=== PATIENT | female | born 2000 | race American Indian/Alaskan Native ===

== ENCOUNTER → 2023-05-28 08:39 | Outpatient (CLI) | payer OTHER, SELFPAY ==
--- NOTE | 2023-05-28 08:41 | DI.US.S_ITS ---
PROCEDURE: US OB <= 14 WEEKS FETUS INDICATIONS: Dating and viability OUTSIDE/PRIOR DATING DATA: Last menstrual period (LMP): March 03, 2023. LMP-based estimated date of delivery (JIE): December 08, 2023. First dating scan (date and location): May 28, 2023. Estimated date of delivery (JIE) from first dating scan: December 04, 2023. TECHNIQUE: Real-time scanning was performed of the fetus and maternal pelvic organs, with image documentation. COMPARISON: None. FINDINGS: Embryo: Single living intrauterine gestation with estimated sonographic gestational age of approximately 12 weeks and 6 days based off crown-rump length measurement of approximately 6.5 cm. heart rate measures 155 beats per minute. No perigestational hemorrhage. Maternal organs: Ovaries appear normal bilaterally.. IMPRESSION: Single living intrauterine gestation with estimated sonographic gestational age of approximately 12 weeks and 6 days with estimated dated delivery of approximately December 04, 2023 versus approximately December 08, 2023 by last menstrual period. Recommend routine second trimester anatomy screening survey. We strive to produce accurate, complete, and clear reports of imaging services. To assist us in improving patient care, this report was composed using standard report templates and voice recognition software. Therefore, it may contain abnormal punctuation, insertions and/or omissions. Occasional wrong-word or sound-alike substitutions may occur. Though we review the report and make efforts to correct it, we do recommend that the report be read carefully in proper context to recognize any text inaccuracies. Dictated by: Bobby Carpenter M.D. on 05/28/2023 at 11:13 Approved by: Bobby Carpenter M.D. on 05/28/2023 at 11:16
== END ==
PROVIDERS: Referring Provider Family Medicine; Visit Provider Family Medicine
DX: Z34.01 Encounter for supervision of normal first pregnancy, first trimester (principal); Z3A.12 12 weeks gestation of pregnancy
CPT/HCPCS: 76801

== ENCOUNTER → 2023-06-09 15:26 | Outpatient (CLI) | payer OTHER, SELFPAY ==
[2023-06-09 16:27] LABS: Add Manual Diff / Slide Review NO; Basophils Absolute Auto 0 /uL (0-100); Basophils Percent Auto 0.3 % (0-2); Eosinophils Absolute Auto 100 /uL (0-450); Eosinophils Percent Auto 0.8 % (2-4); Hematocrit 41.1 % (36-46); Hemoglobin 13.9 g/dL (12.0-16.0); Lymphocytes Absolute Auto 1400 /uL (1100-4500); Lymphocytes Percent Auto 15.3 % (25-40); Mean Corpuscular HGB Conc 33.8 % (30-36); Mean Corpuscular Hemoglobin 28.3 PG (26-34); Mean Corpuscular Volume 83.7 fL (80-100); Monocytes Absolute Auto 500 /uL (0-900); Monocytes Percent Auto 5.7 % (3-14); Neutrophils Absolute Auto 7400 /uL (1500-7000); Neutrophils Percent Auto 77.9 % (50-75); Platelet Count 317 X10^3/uL (150-400); Red Blood Cell Count 4.91 X10^6/uL (4.0-5.2); Red Cell Distribution Width 13.9 % (11.6-14.8); White Blood Cell Count 9.5 X10^3/uL (4.5-11.0)
[2023-06-09 16:38] LABS: Appearance Urine UA CLEAR; Bilirubin Urine UA NEGATIVE (NEGATIVE); Color Urine UA YELLOW; Glucose Urine UA NEGATIVE (Negative); Ketones Urine UA NEGATIVE (NEGATIVE); Leukocyte Esterase Urine UA NEGATIVE (NEGATIVE); Nitrite Urine UA NEGATIVE (Negative); Occult Blood Urine UA NEGATIVE (Negative); Protein Urine UA NEGATIVE (Negative); Specific Gravity Urine UA 1.015 (1.000-1.035)
[2023-06-10 05:51] LABS: RPR Screen Non Reactive (Non Reactive)
[2023-06-10 13:53] LABS: Varicella IgG Antibody 150 index (Immune >165)
[2023-06-11 15:53] LABS: Hepatitis B Surface Antigen NEGATIVE s/c (NEGATIVE); Rubella Antibody IgG 37.5 IU/mL (>15)
[2023-06-11 16:11] LABS: HIV 1 & 2 Ab/Ag 4th Gen Combo NEGATIVE (NEGATIVE); Hep C Virus Ab w/Reflex Quant NEGATIVE s/c (NEGATIVE)
== END ==
LOC: LAB 15:27
PROVIDERS: PCP Family Medicine; Referring Provider Family Medicine; Visit Provider Family Medicine
DX: Z34.00 Encounter for supervision of normal first pregnancy, unspecified trimester (principal)
CPT/HCPCS: 36415; 80055; 81003; 86787; 86803; 86850; 86900; 86901; 87086; 87389

== ENCOUNTER → 2023-06-19 16:55 | Outpatient (CLI) | payer OTHER, SELFPAY | PROVIDERS: PCP Family Medicine; Referring Provider Family Medicine; Visit Provider Family Medicine | DX: O99.342 Other mental disorders complicating pregnancy, second trimester (principal) | CPT/HCPCS: 36415 ==

== ENCOUNTER → 2023-07-17 14:20 | Outpatient (CLI) | payer OTHER, SELFPAY ==
--- NOTE | 2023-07-17 14:20 | DI.US.S_ITS ---
PROCEDURE: US OB >= 14 WEEKS FETUS INDICATIONS: 20 week anatomy scan OUTSIDE/PRIOR DATING DATA: Last menstrual period (LMP): 03/03/2023 LMP-based estimated date of delivery (JIE): 12/08/2023. First dating scan (date and location): 05/28/2023. Estimated date of delivery (JIE) from first dating scan: 12/04/2023 TECHNIQUE: Real-time scanning was performed of the fetus, with image documentation and biometric measurements. COMPARISON: [facility], OB <= 14 WEEKS FETUS, 05/28/2023, 9:02. FINDINGS: General: A single living intrauterine gestation is present. Presentation: Vertex. Placenta: Placental position is anterior , without previa. Amniotic fluid index: 15.5 cm, normal range is 5-24 cm. Single deepest vertical pocket is 4.5 cm. heart rate: 153 beats per minute. Maternal cervical canal: 3.5 cm long. Normal lower limit is 2.5 cm. biometrics: Biparietal diameter: 20 weeks 3 days Head circumference: 20 weeks 1 day Abdominal circumference: 20 weeks 4 days Femur length: 20 weeks 5 days Clinically estimated gestational age: 19 weeks 2 days Composite gestational age from present scan: 20 weeks 3 days Estimated weight and percentile: 359 g; 97th percentile Anatomic survey: Neuro: Ventricles are non-dilated at less than 10 mm. Cisterna magna is normal at 3-11 mm. Cerebellum is normal in size and morphology. Nuchal skin fold: Normal at less than 6 mm between 14-21 weeks gestational age. Face: Nose and lips, facial profile are normal. Spine: No evidence for spina bifida. Heart: 4-chambered heart is present, with normal ventricular outflow tracts. Diaphragm: Diaphragm is intact. Stomach: Left-sided stomach is present. Kidneys: No hydronephrosis. Normal is less than 5 mm in 2nd trimester, less than 7 mm in 3rd trimester. Cord: 3-vessel cord has orthotopic insertion. Bladder: Normal in size. Extremities: All 4 extremities identified. IMPRESSION: 1. Single living IUP redemonstrated and interval growth is greater than expected. Follow-up growth recommended. 2. Normal anatomic survey. We strive to produce accurate, complete, and clear reports of imaging services. To assist us in improving patient care, this report was composed using standard report templates and voice recognition software. Therefore, it may contain abnormal punctuation, insertions and/or omissions. Occasional wrong-word or sound-alike substitutions may occur. Though we review the report and make efforts to correct it, we do recommend that the report be read carefully in proper context to recognize any text inaccuracies. Dictated by: Amado HAM Interpreted: Zoe Rosario MD on 07/17/2023 at 15:44 Transcribed by: ANJUM on 07/17/2023 at 15:46 Approved by: Zoe Rosario M.D. on 07/19/2023 at 20:37
== END ==
PROVIDERS: PCP Family Medicine; Referring Provider Family Medicine; Visit Provider Family Medicine
DX: Z36.89 Encounter for other specified antenatal screening (principal); Z11.3 Encounter for screening for infections with a predominantly sexual mode of transmission; Z3A.20 20 weeks gestation of pregnancy
CPT/HCPCS: 76811; 87210; 87491; 87563; 87591

== ENCOUNTER → 2023-07-17 16:46 | Outpatient (CLI) | payer OTHER, SELFPAY ==
[2023-07-22 20:32] LABS: Chlamydia trachomatis Negative (Negative); Mycoplasma genitalium Negative (Negative); Neisseria gonorrhoeae Negative (Negative)
== END ==
PROVIDERS: PCP Family Medicine; Visit Provider Family Medicine
DX: Z11.3 Encounter for screening for infections with a predominantly sexual mode of transmission (principal)
CPT/HCPCS: 87210; 87491; 87563; 87591

== ENCOUNTER → 2023-09-14 09:51 | Outpatient (CLI) | payer OTHER, SELFPAY ==
[2023-09-14 14:34] LABS: Add Manual Diff / Slide Review NO; Basophils Absolute Auto 0 /uL (0-100); Basophils Percent Auto 0.3 % (0-2); Eosinophils Absolute Auto 100 /uL (0-450); Eosinophils Percent Auto 1.3 % (2-4); Hematocrit 37.8 % (36-46); Hemoglobin 12.6 g/dL (12.0-16.0); Lymphocytes Absolute Auto 1500 /uL (1100-4500); Lymphocytes Percent Auto 13.2 % (25-40); Mean Corpuscular HGB Conc 33.5 % (30-36); Mean Corpuscular Hemoglobin 29.3 PG (26-34); Mean Corpuscular Volume 87.4 fL (80-100); Monocytes Absolute Auto 800 /uL (0-900); Monocytes Percent Auto 6.9 % (3-14); Neutrophils Absolute Auto 8800 /uL (1500-7000); Neutrophils Percent Auto 78.3 % (50-75); Platelet Count 279 X10^3/uL (150-400); Red Blood Cell Count 4.32 X10^6/uL (4.0-5.2); Red Cell Distribution Width 13.7 % (11.6-14.8); White Blood Cell Count 11.3 X10^3/uL (4.5-11.0)
[2023-09-14 14:56] LABS: GTT (PREG) 1 Hour PP 50gm Dose 94 mg/dL (76-139)
== END ==
PROVIDERS: PCP Family Medicine; Referring Provider Family Medicine; Visit Provider Family Medicine
DX: O09.899 Supervision of other high risk pregnancies, unspecified trimester (principal); Z28.39 Other underimmunization status
CPT/HCPCS: 36415; 82950; 85025

== ENCOUNTER → 2023-11-04 14:23 | Outpatient (CLI) | payer OTHER, SELFPAY ==
--- NOTE | 2023-11-04 14:24 | DI.US.S_ITS ---
PROCEDURE: US OB >= 14 WEEKS FETUS INDICATIONS: EFW of 97% - measurement OUTSIDE/PRIOR DATING DATA: Last menstrual period (LMP): 03/03/2023. LMP-based estimated date of delivery (JIE): 12/08/2023. First dating scan (date and location): 05/28/2023. Estimated date of delivery (JIE) from first dating scan: 12/04/2023. The calculations are made using the clinical JIE of 12/08/2023. TECHNIQUE: Real-time scanning was performed of the fetus, with image documentation and biometric measurements. COMPARISON: [facility], OB >= 14 WEEKS FETUS, 07/17/2023, 14:34. FINDINGS: General: A single living intrauterine gestation is present. Presentation: Vertex. Placenta: Placental position is anterior , without previa. Amniotic fluid index: 22.5 cm, normal range is 5-24 cm. Single deepest vertical pocket is 6.6 cm. heart rate: 137 beats per minute. Maternal cervical canal: 3.0 cm long. Normal lower limit is 2.5 cm. biometrics: Biparietal diameter: 8.5 cm 34 weeks 3 days Head circumference: 30.9 cm 34 weeks 3 days Abdominal circumference: 32 cm 35 weeks 6 days Femur length: 6.9 cm 35 weeks 4 days Clinically estimated gestational age: 35 weeks 1 Composite gestational age from present scan: 35 weeks 1 day Estimated weight and percentile: 2691 g, 58th percentile IMPRESSION: Single live intrauterine with ultrasound gestational age today of 35 weeks 1 day. Appropriate interval growth. We strive to produce accurate, complete, and clear reports of imaging services. To assist us in improving patient care, this report was composed using standard report templates and voice recognition software. Therefore, it may contain abnormal punctuation, insertions and/or omissions. Occasional wrong-word or sound-alike substitutions may occur. Though we review the report and make efforts to correct it, we do recommend that the report be read carefully in proper context to recognize any text inaccuracies. Dictated by: Zoe Rosario M.D. on 11/04/2023 at 16:31 Approved by: Zoe Rosario M.D. on 11/04/2023 at 16:34
== END ==
PROVIDERS: PCP Family Medicine; Referring Provider Family Medicine; Visit Provider Family Medicine
DX: Z34.03 Encounter for supervision of normal first pregnancy, third trimester (principal); Z3A.35 35 weeks gestation of pregnancy
CPT/HCPCS: 76811

== ENCOUNTER → 2023-11-13 14:11 | Outpatient (CLI) | payer OTHER, SELFPAY ==
[2023-11-14 09:32] LABS: Strep Grp B PCR NEG for Grp B Strep
== END ==
PROVIDERS: PCP Family Medicine; Visit Provider Family Medicine
DX: Z34.00 Encounter for supervision of normal first pregnancy, unspecified trimester (principal)
CPT/HCPCS: 87653

== ENCOUNTER 2023-12-12 19:34 | Inpatient (IN) | payer OTHER, SELFPAY ==
[2023-12-12 20:36] VITALS: BP 117/78
[2023-12-12 20:50] LABS: Add Manual Diff / Slide Review NO; Basophils Absolute Auto 100 /uL (0-100); Basophils Percent Auto 0.5 % (0-2); Eosinophils Absolute Auto 100 /uL (0-450); Eosinophils Percent Auto 0.6 % (2-4); Hematocrit 38.3 % (36-46); Hemoglobin 12.9 g/dL (12.0-16.0); Lymphocytes Absolute Auto 1800 /uL (1100-4500); Lymphocytes Percent Auto 11.7 % (25-40); Mean Corpuscular HGB Conc 33.6 % (30-36); Mean Corpuscular Hemoglobin 28.7 PG (26-34); Mean Corpuscular Volume 85.3 fL (80-100); Monocytes Absolute Auto 900 /uL (0-900); Monocytes Percent Auto 6.1 % (3-14); Neutrophils Absolute Auto 12300 /uL (1500-7000); Neutrophils Percent Auto 81.1 % (50-75); Platelet Count 286 X10^3/uL (150-400); Red Blood Cell Count 4.49 X10^6/uL (4.0-5.2); Red Cell Distribution Width 14.2 % (11.6-14.8); White Blood Cell Count 15.2 X10^3/uL (4.5-11.0)
[2023-12-12] MEDS: fentaNYL 100 MCG/2 ML INJ IV (21:03)
--- NOTE | 2023-12-12 21:33 | P.PCN_ITS ---
Regional Block Pre-procedure Procedure: Continuous Lumbar Epidural for L&D Attending OB provider: Kathleen Méndez PM/ROS narrative: G1 term 40+ EGA, active labor. No medical or obstetric complications. ASA Class: II Labs: Hct 38.3 % (36-46) 12/12/23 20:30 Plt Count 286 X10^3/uL (150-400) 12/12/23 20:30 Medications: Current Medications Generic Name Dose Route Start Last Admin Trade Name Freq PRN Reason Stop Dose Admin Calcium Carbonate 1,000 mg 12/12/23 20:36 Calcium Carbonate 500 Mg Tab PO Q2HR PRN Dyspepsia Carboprost Tromethamine 250 mcg 12/12/23 20:36 Carboprost 250 Mcg/Ml Ampul IM Q90M PRN Bleeding Fentanyl 100 mcg 12/12/23 20:36 12/12/23 21:03 Fentanyl 100 Mcg/2 Ml Inj IV 100 mcg Q1H PRN Administration Pain, Severe (7-10) Oxytocin/Lactated Ringer's 30 unit in 500 mls @ 200 mls/hr 12/12/23 20:36 Oxytocin Premix IV CONT PRN Bleeding Protocol Tranexamic Acid 1,000 mg/ 100 mls @ 600 mls/hr 12/12/23 20:36 Sodium Chloride IV NOW PRN Bleeding Lactated Ringer's 1,000 mls @ 100 mls/hr 12/12/23 20:45 Lactated Ringers IV 12/13/23 06:44 CONT JULIA Lidocaine HCl 20 ml 12/12/23 20:36 Lidocaine 1% 20 Ml INJ INTRA-OP PRN Post Delivery Methylergonovine Maleate 0.2 mg 12/12/23 20:36 Methylergonovine 0.2 Mg Tablet PO Q6HR PRN Heavy Bleeding Methylergonovine Maleate 0.2 mg 12/12/23 20:36 Methylergonovine 0.2 Mg/Ml Vial IM NOW PRN Bleeding Mineral Oil 30 ml 12/12/23 20:36 Mineral Oil 30 Ml Udc TOP PRN PRN Version Misoprostol 800 mcg 12/12/23 20:36 Misoprostol 200 Mcg Tablet TX NOW PRN Bleeding Misoprostol 400 mcg 12/12/23 20:36 Misoprostol 200 Mcg Tablet SL NOW PRN Bleeding Naloxone HCl 0.2 mg 12/12/23 20:36 Naloxone 0.4 Mg/Ml Vial IV Q2MIN PRN Opiate Reversal Ondansetron HCl 4 mg 12/12/23 20:36 Ondansetron 4 Mg/2 Ml Inj IV Q4HR PRN Nausea And Vomiting Oxytocin 10 unit 12/12/23 20:36 Oxytocin 10 Unit/Ml Vial IM NOW PRN Bleeding Terbutaline Sulfate 0.25 mg 12/12/23 20:36 Terbutaline 1 Mg/Ml Vial SUBCUT NOW PRN Intolerance Allergies: Allergies Allergy/AdvReac Type Severity Reaction Status Date / Time Penicillins Allergy Intermediate Hives Verified 12/11/23 13:28 Procedure Insertion date: 12/12/23 Insertion time: 21:50 Prep/Local: betadine x3 and 1% lidocaine Interspace: L3-4 Patient position: sitting Needle: 18 gauge Deep Casing Tools (CSE: 27g Pencan through Hustead, clear CSF, 1mL 0.25% bupiv MPF) Loss of resistance with: saline VINNY at (cm): 6 Catheter placed at SKIN (cm): 12 Catheter in SPACE (cm): 6 Insertion: No CSF, No Blood, No Paresthesia with insertion, No Paresthesia with injection and No Test dose reaction Initial Medications TEST DOSE time: 21:54 TEST DOSE: 1.5% lidocaine with epinephrine 1:200k (mL): 3 BOLUS DOSE time: 22:04 BOLUS DOSE (mL): 4 BOLUS DOSE med: other (infusate) Infusion INFUSION: 0.125% bupivacaine and with fentanyl 2 mcg/mL Initial rate (mL/hr): 10 Subsequent interventions: PCEA@10+4 Post-procedure Anesthesia date START: 12/12/23 Anesthesia time START: 21:47 Anesthesia date END: 12/13/23 Anesthesia time END: 03:48 Post-procedure Anesthesia Assessment: Yes CV function: HR/BP stable, Yes Resp function: RR/sat/airway adequate, Yes Post-op hydration adequate, Yes Pain control adequate, Yes Nausea & vomiting absent, Yes Temperature > 36 C, Yes Mental status appropriate and No Anesthesia complications
--- NOTE | 2023-12-12 21:39 | P.HPOB_ITS ---
OB HPI Date/Time Date of admission: 12/12/23 Date Patient Seen: 12/12/23 Time Patient Seen: 21:19 History of Present Condition Chief complaint: labor : 1 Para: 0 Estimated Date of Delivery: 12/08/23 Estimated Gestational Age (weeks): 40w4d Narrative: Anni Bae is a 23 year old G1 presenting with increasing contraction frequency and strength at 40w4d. SHe had onset of contractions last night and they have been gettng closer together. SVE yesterday in clinic was closed/thick/high/moderate/mid. SHe has not had any gushes of fluid. She does desire epidural. has been uncomplciated History of Present care: good care Dating criteria: LMP confirmed by 1st trimester US Ultrasounds: normal 1st trimester US and normal mid trimester US Obstetrical complications: none Medical complications: none Preadmission Labs Blood type: A (+) positive -: Antibody screen: negative, GBS status: negative, HBsAG: negative, HIV: negative and RPR/VDLR: negative -: Chlamydia screen: not detected and Gonorrhea screen: not detected -: Rubella: immune and Varicella: not immune (150) HCT: 38.3 HCAB: negative Cell-free DNA: low risk male 1 hr GTT: 94 Evaluation Evaluation Baseline heart rate: 150 Variability: Moderate (11-25) monitor accelerations: Present Monitor Decelerations: Absent Contraction Frequency (minutes): 4 Category of Tracing: Reactive Status: Category l Dilation (cm): 6 Effacement (%): 90 Dilation: >/=5 cm Effacement: >/=80% station: -1 Position of cervix: anterior Consistency: soft Cheng score: 12 [facility] Medical History (Updated 06/11/23 @ 10:55 by Kathleen Méndez MD) Susceptible to varicella (non-immune), currently Headache Anxiety Migraine without aura (~2007) Surgical History (Updated 05/27/23 @ 11:04 by Yvette Chavez RN) H/O tooth extraction Family History (Updated 05/27/23 @ 11:13 by Yvette Chavez RN) Mother Asthma Migraine MTHFR gene mutation Hypertension Aunt MTHFR gene mutation Grandmother MTHFR gene mutation Migraine Hypertension Father Family estrangement Alcoholism Drug abuse Social History marital status: number of children: 0 household members: spouse lives independently: Yes caregiver/support person: No housing: house pets and animals: Yes (dog) education level: college (some college) occupational status: employed (retail) current occupational exposures/hazards: No special jovan needs: No travel history: over 6 months ago seatbelt use: always water heater temp set < 120 deg: Yes working smoke detector in home: Yes fire extinguisher in home: No carbon monox detector in home: Yes firearms in home: No do you feel safe at home: Yes Smoking Status: Former smoker (quit vaping when she learned she was ) Tobacco: How many years used: 4 (vaping only) second hand exposure: Yes ( vapes, but not around pt since she quit) alcohol intake: former (occasionally/rarely when not ) during the past year weight has: decreased > 10 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) well-balanced diet: daily or most days daily servings fruits/ve or more times/day caffeine: Yes (occasional soft drink) Type(s) of exercise: none Meds Home Medications and Allergies Home Medications Medication Instructions Recorded Confirmed Type vitamin-ferrous sulfate tab PO 05/27/23 12/11/23 History 27 mg iron-folic acid 0.8 mg tablet doxylamine succinate 25 mg tablet 25 mg PO BEDTIME PRN sleep #30 tabs 11/06/23 12/11/23 Rx (Unisom (doxylamine)) fluconazole 150 mg tablet 150 mg PO ONCE #1 tab 12/11/23 12/11/23 Rx hydroxyzine HCl 25 mg tablet 25 mg PO TID PRN anxiety/insomnia 12/11/23 12/11/23 Rx #30 tabs miconazole nitrate 2 % topical 1 applic topical BID #14 grams 12/11/23 12/11/23 Rx cream (Antifungal (miconazole)) Allergies Allergy/AdvReac Type Severity Reaction Status Date / Time Penicillins Allergy Intermediate Hives Verified 12/11/23 13:28 Review of Systems Review of Systems Narrative: + contractions - LOF - [facility] OB Exam Narrative Exam Narrative: gEN: breathing through contractions every 3-4min, very uncomfortable MSK: moving all extremities ABd: gravid extremities: mild edema, symmetric in lower extremities Objective Labs 12/12/23 20:30 Labs: Laboratory Results - last 24 hr 12/12/23 20:30 WBC 15.2 H RBC 4.49 Hgb 12.9 Hct 38.3 MCV 85.3 MCH 28.7 MCHC 33.6 RDW 14.2 Plt Count 286 Neut % (Auto) 81.1 H Lymph % (Auto) 11.7 L [place] % (Auto) 6.1 Eos % (Auto) 0.6 L Baso % (Auto) 0.5 Neut # (Auto) 96171 H Lymph # (Auto) 1800 [place] # (Auto) 900 Eos # (Auto) 100 Baso # (Auto) 100 Blood Type A Positive Antibody Screen Negative Assessment and Plan Assessment and Plan Assessment and Plan narrative: 23 yo G1 presenting in active labor, SVE /-1. Will admit and manage expectantly. Pt requesting epidural ## MOIRA: - admit to LD - CBC, TS - epidural requested, anesthesia consulted - Zofran for nausea - expectant management - cephalic by fernando HERRERA in clinic - GBS neg, no ppx - Blood type A+, ab neg - Baby boy prisca - FOB Diego at bedside ## varicella non-immune: - PP varicella vaccination rec'ed Time-Based Coding :: [TOTAL MINUTES] spent with patient and on the chart (including review of chart, obtaining history, exam, reviewing outside data, placing orders, documenting exam and treatment plan, and counseling patient) on [DATE].
--- NOTE | 2023-12-13 01:33 | PM.OBPNLAB ---
Date/Time Date Patient Seen: 12/13/23 Time Patient Seen: 01:34 Pain Control Pain control: tolerating well and epidural Comments: much more comfortable with epidural, feeling some pressure. After AROM noting slightly more pressure. Pelvic Exam Dilation (cm): 10 Effacement (%): 100 station: +1 Amniotic membrane status: Ruptured Comments: Bulging back, ROM performed without incident, clear fluid at 1:15am Contractions Contractions on admission: regular Monitor mode: External Contraction pattern: Regular Contraction intensity: Strong/Firm Status status: Category l Heart Rate Baseline: 130 Monitor Accelerations: Present Monitor Decelerations: Episodic (occassional variables ) Monitor Variability: Moderate Assessment and Plan Assessment: active labor Plan: continuous present management Comments: 23 yo G1 presenting in active labor at 40w4d, now 40w5d, now complete. AROM completed with clear fluid. Epidural in place and pain well controlled ## MOIRA: - epidural in place, working well - Zofran for nausea - AROM clear fluid at 1:15am - expectant management - cephalic by fernando HERRERA in clinic - GBS neg, no ppx - Blood type A+, ab neg - Baby boy prisca - FOB Diego at bedside ## varicella non-immune: - PP varicella vaccination rec'ed
--- NOTE | 2023-12-13 04:12 | PM.OBPRVD ---
Events: Other Labor & Delivery Delivery date: 12/13/23 Intrapartal Events: None Cervical ripening method: none Induction method: none Delivery augmentation: rupture of membranes Delivery monitor: external FHT Route of delivery: L&D Laceration Description: Perineal - 2nd Degree Delivery repair: vicryl (3-0) Estimated blood loss (mL): 150 Anesthesia Type: Epidural Narrative: PREPROCEDURE DIAGNOSIS: Intrauterine at 40w4d Spontaneous onset of labor GBS negative A+, antibody neg POSTPROCEDURE DIAGNOSIS: Intrauterine at 40w4d, delivered Same as preprocedure PROCEDURE: 23 yo at 40w4 presented with MOIRA and was admitted to Labor and Delivery. On arrival, SVE was 6/90/-1 with intact membranes. The patient progressed through the 1st stage of labor. She received one dose of Fentanyl for pain while awaiting anaesthesia arrival. Epidural was placed for anesthesia. ROM occured at 01:15 with clear fluid with AROM. The patient progressed through the 2nd stage and delivered a viable male infant with APGARs 8/9 at 03:38 via out of direct OA. There was a nuchal arm which did not cause difficulty with delivery. The cord was cut and clamped after a 60 second delay. The placenta delivered with gentle cord traction, and appeared complete. Moderate amount of calcifications were present in the placenta. 3 vessel cord was visualized on exam. The perineum and vagina were inspected with a 2nd degree perineal laceration which was repaired in the usual fashion. Needle and sponge counts were correct.? The vagina was inspected and no items were left in situ. Plan for aftercare: Routine care
[2023-12-13] MEDS: IBUPROFEN 600 MG TABLET PO ×3 (06:02→18:47)
[2023-12-13] MEDS: WITCH HAZEL/GLYCERIN PADS 1 EACH TOP (06:02)
[2023-12-13] MEDS: LANOLIN OINT 7 GM 1 APPLIC TOP (06:02)
[2023-12-13] MEDS: ACETAMINOPHEN 325 MG TABLET 650 MG PO ×3 (06:03→18:47)
[2023-12-13] MEDS: DERMOPLAST SPRAY 20% 60 ML 1 SPRAY TOP (06:03)
[2023-12-13] MEDS: polyethylene glycoL 3350 17 GM POWD.PACK PO (10:18)
[2023-12-13] MEDS: PRENATAL VIT,CALC/IRON/FOLIC 1 TABLET 1 TAB PO (10:18)
[2023-12-14] MEDS: ACETAMINOPHEN 325 MG TABLET 650 MG PO ×3 (00:27→13:55)
[2023-12-14] MEDS: IBUPROFEN 600 MG TABLET PO ×3 (00:27→13:55)
--- NOTE | 2023-12-14 13:30 | PM.OBDS.1 ---
Discharge Providers Provider Date of admission: 12/12/23 19:34 Discharge Date: 12/14/23 Primary care physician: Kathleen Méndez MD Consults: 12/12/23 20:36 Consult to Anesthesiology Urgent Comment: Consulting Provider: Anesthesiologist Reason for consultation: Epidural 12/14/23 04:17 Consult to Automobile Service Writer Routine Comment: Discharge provider: Kathleen Méndez MD Summary Hospital Course Date Patient Seen: 12/14/23 Time Patient Seen: 13:30 Hospital Course: 23 yo at 40w4 presented with MOIRA and was admitted to Labor and Delivery. On arrival, SVE was 6/90/-1 with intact membranes. The patient progressed through the 1st stage of labor. She received one dose of Fentanyl for pain while awaiting anaesthesia arrival. Epidural was placed for anesthesia. ROM occured at 01:15 with clear fluid with AROM. The patient progressed through the 2nd stage and delivered a viable male with APGARs 8/9 at 03:38 via out of direct OA. There was a nuchal arm which did not cause difficulty with delivery. The cord was cut and clamped after a 60 second delay. The placenta delivered with gentle cord traction, and appeared complete. Moderate amount of calcifications were present in the placenta. 3 vessel cord was visualized on exam. The perineum and vagina were inspected with a 2nd degree perineal laceration which was repaired in the usual fashion. , pain was well controlled with ibuprofen and tylenol. She has had good milk supply and is well. she has met with and questions have been answered. Bleeding is as expected without large clots. She is voiding normally. She will be sent home with miralax to avoid cosntipation Peripartum Data Infant Delivery Method: Natural Vaginal Laceration Description: Perineal - 2nd Degree complications: none Status at Discharge Cognitive/behavioral status at discharge: oriented Functional status at discharge: independent ambulation Time Spent with Patient Time attestation: Total time spent providing and/or coordinating discharge services: Time spent: Greater than 30 minutes Objective Labs 12/12/23 20:30 Exam Narrative Exam Narrative: GEN: Healthy appearing, well-developed, NAD. AMbulating independently PSYCH: Good Judgment. AOx3. Normal memory, mood, and affect HEENT: -Head: NC/AT -Eyes: No discharge or redness CV: warm and well perfused LUNGS: breathing comfortably on RA SKIN: Warm, well perfused. No skin rashes or abnormal lesions MSK: No deformities NEURO: Ambulating with no limitations. No focal deficits Discharge Plan Discharge Plan Patient Disposition: Home Discharge orders & Medications Prescriptions: New polyethylene glycol 3350 17 gram Powder In Packet 17 g PO DAILY PRN (Reason: constipation) 10 Days Qty: 30 0RF Poly-Vi-Moira with Iron 11 mg iron/mL drops 1 ml PO DAILY Qty: 50 0RF Continued Unisom (doxylamine) 25 mg tablet 25 mg PO BEDTIME PRN (Reason: sleep) Qty: 30 0RF hydroxyzine HCl 25 mg tablet 25 mg PO TID PRN (Reason: anxiety/insomnia) Qty: 30 0RF fluconazole 150 mg tablet 150 mg PO ONCE Qty: 1 0RF Rx Instructions: as a single dose miconazole nitrate [Antifungal (miconazole)] 2 % cream 1 applic topical BID Qty: 14 0RF vit-ferrous sulfat-FA 27 mg iron- 0.8 mg tablet PO Follow up/Referrals: Kathleen Méndez MD [Primary Care Provider] - 6 Weeks (Please follow up with Dr. Méndez for your 6 week post check up on January 24 @1100. ) Visit Report/Discharge Packet Stand Alone Forms: Discharge: Care, Patient Portal/API, Stroke Signs & Symptoms Discharge Data Primary Care Provider: Kathleen Méndez
[2023-12-14 13:37] VITALS: BP 116/69; PULSE 89; RESP 15; TEMP 36.9
== END 2023-12-14 14:58 | disposition home or self-care (01) | DRG 807 ==
PROVIDERS: Admitting Provider Family Medicine; PCP Family Medicine; Referring Provider Family Medicine; Visit Provider Family Medicine
DX: O70.1 Second degree perineal laceration during delivery (principal); Z37.0 Single live birth; Z3A.40 40 weeks gestation of pregnancy
CPT/HCPCS: 59050; 85025; 86850; 86900; 86901; G0379; J3010